=== PATIENT | male | born 1940 | race Caucasian/White ===

== ENCOUNTER → 2017-08-21 | Outpatient (CLI) | payer MEDICARE, OTHER ==
--- NOTE | 2017-08-21 14:07 | RADIOLOGY REPORT (SQ) ---
EXAM DESCRIPTION: CTA CHEST COMPLETED DATE/TIME: 08/21/2017 1:22 pm REASON FOR STUDY: POS D DIMER (R79.89) R79.89 OTHER SPECIFIED ABNORMAL FINDINGS OF BLOOD CHEMISTRY COMPARISON: None. TECHNIQUE: CT scan of the chest performed using helical scanning technique with dynamic intravenous contrast injection. Images reviewed with lung, soft tissue and bone windows. Reconstructed coronal and sagittal MPR images reviewed. Additional 3 dimensional post-processing performed to develop Maximal Intensity Projection images (NE P). All images stored on PACS. All CT scanners at this facility use dose modulation, iterative reconstruction, and/or weight based d osing when appropriate to reduce radiation dose to as low as reasonably achievable (ALARA). [facility]: Dose Right [facility]: CareDose [facility]: Dose Right [facility]: Teradose 4D [facility]: InteliVideo CONTRAST TYPE AND DOSE: contrast/concentration: Isovue 370.00 mg/ml; Total Contrast Delivered: 76.0 ml; Total Saline Delivered: 103.0 ml Contrast bolus optimized for the pulmonary arteries. Not diagnostic for the aorta. RENAL FUNCTION: Creatinine 1.3 RADIATION DOSE: Up-to-date CT equipment and radiation dose reduction techniques were employed. CTDIv ol: 1.9 - 15.5 mGy. DLP: 594 mGy-cm. . LIMITATIONS: None. FINDINGS: LUNGS AND PLEURA: No masses, infiltrates, pneumothorax. No pleural effusions, calcificati ons. AORTA AND GREAT VESSELS: No aneurysm. Contrast bolus not optimized for the aorta. HEART: No pericardial effusion. PULMONARY ARTERIES: No emboli visualized in the main pulmonary arteries or the segmental branches. HILAR AND MEDIASTINAL STRUCTURES: No identified masses or abnormal nodes. HARDWARE: Sternotomy wires. Heart valve. UPPER ABDOMEN: No significant findings. Limited exam. THYROID AND OTHER SOFT TISSUES: No masses. No adenopathy. BONES: No acute or significant finding. 3D MIPS: Confirm above findings. OTHER: No other significant finding. IMPRESSION: NORMAL CTA OF THE CHEST. NO PULMONARY EMBOLI. COMMENT: Quality ID # [id number]: Final reports with documentation of one or more dose reduction techniques (e.g., Automated exposure control, adjustment of the mA and/or kV according to patient size, use of iterative reconstruction technique) TECHNICAL DOCUMENTATION: JOB ID: [id number] [employer]- All Rights Reserved
--- NOTE | 2017-08-21 16:08 | XCELERA REPORT ---
[address] [address] Lower Extremity Venous Evaluation Name: JOHN BROOKS Age: 77 yrs Gender: Male : 1940 Patient Status: Outpatient Patient Location: [facility] Study Date: 08/21/2017 01:30 PM Procedure: Color flow and duplex imaging bilaterally of the veins of the lower extremities as well as the Common Femoral veins. Reason For Study: POSITIVE D DIMER Ordering Physician: DILSHAD TIRADO Performed By: Sunitha Navarro Right Sided Venous Evaluation Normal vessel filling wall to wall, compression and augmentation as well as Colour flow down to the infrageniculate veins. Left Sided Venous Evaluation Normal vessel filling wall to wall, compression and augmentation as well as Colour flow down to the infrageniculate veins. Interpretation Summary No duplex evidence of DVT or obstruction in the bilateral lower extremities. : DILSHAD TIRADO > Jose Guadalupe Briones
== END ==
LOC: RAD 12:21
PROVIDERS: ATTEND Internal Medicine Pulmonary Disease
DX: R79.89 Other specified abnormal findings of blood chemistry (principal)
CPT/HCPCS: 71275; 82565; 93970

== ENCOUNTER 2019-09-06 09:57 | Emergency (ER) | payer MEDICARE, OTHER ==
[2019-09-06 10:39] LABS: HEMATOCRIT 37.7 % (37.9-51.0); HEMOGLOBIN 12.5 g/dL (13.5-17.0); MEAN CORPUSCULAR HEMOGLOBIN 33.9 pg (27.0-33.4); MEAN CORPUSCULAR HGB CONC 33.1 g/dL (32.0-36.0); MEAN CORPUSCULAR VOLUME 102 fl (80-97); RED BLOOD COUNT 3.68 10^6/uL (4.35-5.55); RED CELL DISTRIBUTION WIDTH 15.2 % (11.5-14.0); WHITE BLOOD COUNT 5.1 10^3/uL (4.0-10.5)
[2019-09-06 10:53] LABS: PLATELET COUNT 96 10^3/uL (150-450)
[2019-09-06 10:54] LABS: ABSOLUTE LYMPHOCYTES# (MANUAL) 0.7 10^3/uL (0.5-4.7); ABSOLUTE MONOCYTES # (MANUAL) 0.4 10^3/uL (0.1-1.4); ALBUMIN 3.2 g/dL (3.5-5.0); ALKALINE PHOSPHATASE 81 U/L (38-126); ASPARTATE AMINO TRANSFERASE 31 U/L (17-59); BASOPHILS % (MANUAL) 0 % (0-2); BILIRUBIN,DIRECT 0.2 mg/dL (0.0-0.4); BILIRUBIN,TOTAL 0.9 mg/dL (0.2-1.3); BLOOD UREA NITROGEN 33 mg/dL (7-20); CALCIUM 8.7 mg/dL (8.4-10.2); CARBON DIOXIDE 23 mmol/L (22-30); CHLORIDE 114 mmol/L (98-107); CREATINE KINASE 71 U/L (55-170); EOSINOPHILS % (MANUAL) 1 % (0-6); GLUCOSE 162 mg/dL (75-110); LYMPHOCYTES % (MANUAL) 13 % (13-45); MONOCYTES % (MANUAL) 7 % (3-13); POTASSIUM 5.1 mmol/L (3.6-5.0); SEGMENTED NEUTROPHILS % (MAN) 79 % (42-78); TOTAL CELLS COUNTED 100; TOTAL PROTEIN 5.7 g/dL (6.3-8.2)
[2019-09-06 10:55] LABS: ANISOCYTOSIS SLIGHT
[2019-09-06 10:56] LABS: PLATELET COMMENT DECREASED; TEAR DROP CELLS SLIGHT
[2019-09-06] MEDS ORDERED: NITROGLYCERIN/D5W 50 MG/250 ML RTUINJ IV PRN (11:01)
[2019-09-06 11:05] LABS: CREATINE KINASE MB 2.7 ng/mL (<4.55); TROPONIN I 0.023 ng/mL
[2019-09-06 11:08] LABS: ANION GAP 4 (5-19)
[2019-09-06 11:32] LABS: APPEARANCE,URINE CLEAR; BILIRUBIN,URINE NEGATIVE (NEGATIVE); COLOR,URINE YELLOW; GLUCOSE, URINE NEGATIVE (NEGATIVE); KETONES,URINE NEGATIVE (NEGATIVE); LEUKOCYTE ESTERASE,URINE NEGATIVE (NEGATIVE); NITRITE,URINE NEGATIVE (NEGATIVE); PROTEIN,URINE NEGATIVE (NEGATIVE); URINE SPECIFIC GRAVITY 1.016; UROBILINOGEN,URINE NEGATIVE mg/dL (<2.0)
--- NOTE | 2019-09-06 12:01 | RADIOLOGY REPORT (SQ) ---
EXAM DESCRIPTION: CHEST SINGLE VIEW COMPLETED DATE/TIME: 09/06/2019 11:45 am REASON FOR STUDY: CP COMPARISON: None. EXAM PARAMETERS: NUMBER OF VIEWS: One view. TECHNIQUE: Single frontal radiographic view of the chest acquired. RADIATION DOSE: NA LIMITATIONS: None. FINDINGS: LUNGS AND PLEURA: No opacities, masses or pneumothorax. No pleural effusion. MEDIASTINUM AND HILAR STRUCTURES: No masses. Contour normal. HEART AND VASCULAR STRUCTURES: Heart is enlarged. No failure. BONES: No acute findings. HARDWARE: Sternotomy wires are in place. OTHER: No other significant finding. IMPRESSION: Cardiomegaly. No acute findings. TECHNICAL DOCUMENTATION: JOB ID: [id number] [employer]- All Rights Reserved Reading location - IP/workstation name: [email or web address]
--- NOTE | 2019-09-06 12:31 | ER Document Report ---
Entered by GUADALUPE MURRY SCRIBE 09/06/19 1035 Acting as scribe for:CHRISTO BOSCH DO ED General - General Chief Complaint: Chest Pain Stated Complaint: CHEST PAIN Time Seen by Provider: 09/06/19 10:34 Primary Care Provider: DILSHAD TIRADO DO [Primary Care Provider] - Follow up as needed Mode of Arrival: Ambulatory Information source: Patient Notes: This 79-year-old male patient presents to the emergency department with complai nts of chest pain the last x2 days. Patient states x2 days ago he had several bouts of chest pain but was not seen for it as it was over the weekend. Patient states today the chest pain began again so he went to his framing machine tender office who sent him here to the emergency department. Patient states nitro given prior to arrival here helped relieve his pain. Patient states he has had associated diaphoresis. Patient had open heart surgery in 2006, getting a bovine aortic valve replacement and a one vessel bypass. TRAVEL OUTSIDE OF THE [place] IN LAST 30 DAYS: No - Related Data Allergies/Adverse Reactions: doxycycline [Doxycycline] Allergy (Mild, Verified 02/24/13 10:09) RASH Past Medical History - General Information source: Patient - Social History Smoking Status: Never Smoker Cigarette use (# per day): No Frequency of alcohol use: Occasional Drug Abuse: None Lives with: Family Family History: Reviewed & Not Pertinent Patient has suicidal ideation: No Patient has homicidal ideation: No - Past Medical History Cardiac Medical History: Reports: Hx Hypercholesterolemia Endocrine Medical History: Reports: Hx Diabetes Mellitus Type 2 Past Surgical History: Reports: Hx Abdominal Surgery - aneurysm repair, Hx Cardiac Surgery - heart valve replacement, Hx Open Heart Surgery - AORTIC VALVE REPLACEMENT 2006/ one bypass, Hx Orthopedic Surgery - bilateral hip replacements, left knee replacement - Immunizations Hx Diphtheria, Pertussis, Tetanus Vaccination: Yes - 1 year ago Hx Pneumococcal Vaccination: 10/05/08 Review of Systems - Review of Systems Constitutional: See HPI, Diaphoresis EENT: No symptoms reported Cardiovascular: See HPI, Chest pain Respiratory: No symptoms reported Gastrointestinal: No symptoms reported Genitourinary: No symptoms reported Male Genitourinary: No symptoms reported Musculoskeletal: No symptoms reported Skin: No symptoms reported Hematologic/Lymphatic: No symptoms reported Neurological/Psychological: No symptoms reported -: Yes All other systems reviewed and negative Physical Exam - Vital signs Vitals: Temp Resp BP Pulse Ox 98.1 F 14 117/71 97 09/06/19 10:06 09/06/19 10:06 09/06/19 10:06 09/06/19 10:06 - Notes Notes: Physical Exam: General: Alert, appears uncomfortable HEENT: Normocephalic. Atraumatic. PERRL. Extraocular movements intact. Oropharynx clear. Neck: Supple. Non-tender. Respiratory: No respiratory distress. Clear and equal breath sounds bilaterally. Cardiovascular: Bradycardic, irregular rhythm. Abdominal: Normal Inspection. Non-tender. No distension. Normal Bowel Sounds. Back: No gross abnormalities. Extremities: Moves all four extremities. Upper extremities: Normal inspection. Normal ROM. Lower extremities: Normal inspection. No edema. Normal ROM. Neurological: Normal cognition. AAOx4. Normal speech. Psychological: Normal affect. Normal Mood. Skin: Warm. Dry. Normal color. Course - Re-evaluation Re-evalutation: 09/06/19 11:06 Patient is an 79-year-old male with a history of coronary artery disease and ongoing chest pain. Initial troponin is 0.023. A flutter on EKG which is apparently new for this patient. No ST changes at this time. No therapeutic cath available at this institution. Transfer initiated to [facility] where the patient has been before. 09/06/19 11:20 Spoke to patient's framing machine tender Dr. Gray who wants the patient transferred to [facility] 09/06/19 11:35 Patient was discussed with Dr. Moreno at [facility]. Will be accepted for transfer due to unstable angina. Patient is on nitro drip at 5 which is all his blood pressure will tolerate at this time. His pain is nearly gone. - Vital Signs Vital signs: Temp Pulse Resp BP Pulse Ox 98.1 F 14 111/57 L 96 09/06/19 10:06 09/06/19 12:17 09/06/19 12:17 09/06/19 12:17 - Laboratory Result Diagrams: 09/06/19 10:10 09/06/19 10:10 Laboratory results interpreted by me: 09/06/19 09/06/19 10:10 10:10 RBC 3.68 L Hgb 12.5 L Hct 37.7 L MCV 102 H MCH 33.9 H RDW 15.2 H Plt Count 96 L Seg Neuts % (Manual) 79 H Potassium 5.1 H Chloride 114 H Anion Gap 4 L BUN 33 H Glucose 162 H Total Protein 5.7 L Albumin 3.2 L Critical Care Note - Critical Care Note Total time excluding time spent on procedures (mins): 35 - Evaluation and management of ongoing chest pain, multiple re-evaluations, coordination of transfer, consultation with specialist Discharge - Discharge Clinical Impression: Unstable angina Condition: Stable Disposition: [facility] Referrals: DILSHAD TIRADO DO [Primary Care Provider] - Follow up as needed I personally performed the services described in the documentation, reviewed and edited the documentation which was dictated to the scribe in my presence, and it accurately records my words and actions.
[2019-09-06 12:49] VITALS: BP 135/73
--- NOTE | 2019-09-06 14:33 | EKG REPORT ---
SEVERITY:- ABNORMAL ECG - SINUS OR ECTOPIC ATRIAL RHYTHM LEFT BUNDLE BRANCH BLOCK : Confirmed by: Eve Anne MD 06-Sep-2019 14:32:15
== END 2019-09-06 13:00 | disposition short-term general hospital (02) ==
LOC: ER 09:57
DX: I20.0 Unstable angina (principal); R07.9 Chest pain, unspecified; E78.00 Pure hypercholesterolemia, unspecified; E11.9 Type 2 diabetes mellitus without complications; Z95.4 Presence of other heart-valve replacement; Z96.643 Presence of artificial hip joint, bilateral
CPT/HCPCS: 93005; 99291; 96365; 96366; 36415; 82553; 82550; 85025; 80053; 81001; 84484; 71045; 93010; J3490